=== PATIENT | female | born 1970 | race African-American/Black ===

== ENCOUNTER 2018-12-15 09:30 | Emergency (ER) | payer MEDICAID ==
[~2018-12-15] VITALS: Ht 157.5 cm; Wt 58.0 kg
[2018-12-15] MEDS ORDERED: FUROSEMIDE 20MG TABLET PO ONE (10:45)
[2018-12-15 11:40] LABS: BASOPHILS % 0.7 % (0.0-2.0); HEMATOCRIT. 39.5 % (36.0-48.0); HEMOGLOBIN. 13.7 g/dL (12.0-16.0); LYMPHOCYTES % 33.7 % (20.0-50.0); MEAN CORPUSCULAR HEMOGLOBIN 27.3 pg (28.0-32.0); MEAN CORPUSCULAR VOLUME 78.8 fL (81.0-99.0); MEAN PLATELET VOLUME 7.9 fl (7.4-10.4); NEUTROPHILS % 59.6 % (40.0-76.0); PLATELET 282 x1000/uL (130-400); RED BLOOD CELL COUNT 5.02 mill/uL (4.2-5.4); RED CELL DISTRIBUTION WIDTH 13.9 % (11.6-14.6)
[2018-12-15 11:47] LABS: CHLORIDE 99 mEq/L (98-107)
[2018-12-15] MEDS ORDERED: METFORMIN HCL 500MG TABLET PO ONE (14:15)
[2018-12-15 17:34] VITALS: BP 128/75
== END 2018-12-15 17:37 | disposition home or self-care (01) ==
LOC: EDBD 09:30 → ER 09:30
DX: R60.0 Localized edema (principal); E11.65 Type 2 diabetes mellitus with hyperglycemia; Z90.49 Acquired absence of other specified parts of digestive tract; Z59.0 Homelessness
CPT/HCPCS: 36415; 71045; 82962; 93005; 93970; 99284